=== PATIENT | female | born 1990 | race Caucasian/White ===

== ENCOUNTER 2020-01-10 11:43 | Inpatient (IN) ==
[2020-01-10] MEDS ORDERED: SIMETHICONE CHEW 80 MG TABLET PO PRN (16:13)
[2020-01-10] MEDS ORDERED: ACETAMINOPHEN/CODEINE 300-30 MG TABLET PO PRN (19:36)
[2020-01-10] MEDS: LABETALOL 100 MG TABLET PO SCH (20:59)
[2020-01-11] MEDS: LABETALOL 100 MG TABLET PO SCH ×2 (08:49→20:55)
[2020-01-11] MEDS ORDERED: BUTORPHANOL 2 MG/ML VIAL IV PRN (08:53)
[2020-01-11] MEDS ORDERED: ONDANSETRON 4 MG/2 ML VIAL IV PRN (08:53)
[2020-01-11] MEDS ORDERED: LACTATED RINGERS 500 ML IV PRN (08:53)
[2020-01-11] MEDS ORDERED: FAMOTIDINE 20 MG/2 ML VIAL IV SCH (09:00)
[2020-01-11] MEDS ORDERED: FAMOTIDINE 20 MG TABLET PO SCH (09:00)
[2020-01-11] MEDS ORDERED: OXYTOCIN/LR 20 UNIT/1,000 ML BAG IV SCH (09:00)
[2020-01-11 09:17] LABS: Basophils % 0.2 % (0.0-0.8); Eosinophils # 0.1 10*3/uL (0.0-0.87); Eosinophils % 1.3 % (0.00-10.9); Hematocrit 29.5 VOL% (35.7-47.0); Hemoglobin 9.5 GM/DL (12.0-16.0); Immature Granulocytes % 0.6 %; Immature Granulocytes Absolute 0.05 #; Lymphocytes # 1.2 10*3/uL (1.4-4.0); Lymphocytes % 14.1 % (21.3-54.2); Mean Corpuscular HGB Conc 32.2 GM/DL (32-36); Mean Corpuscular Volume 86.5 FL (87-102); Mean Platelet Volume 11.6 FL (9.6-12.0); Monocytes % 5.6 % (1.7-12.7); Neutrophils % 78.2 % (38.7-73.9); Platelet Count 166 T/CUMM (130-400); Red Blood Count 3.41 MC/CUMM (3.8-5.5); Red Cell Distribution Width 13.1 % (9.3-17.3); White Blood Count 8.6 T/CUMM (4-12)
[2020-01-11 09:39] LABS: INR 0.9; PT Patient Result 9.8 SECS (9.8-11.9); Partial Thromboplastin Time 26.2 SECS (23.9-33.8)
[2020-01-11 09:58] LABS: Albumin 2.7 G/DL (3.4-5.0); Bilirubin,Total 0.6 MG/DL (0.2-1.0); Calcium 8.7 MG/DL (8.5-10.1); Osmolality,Calculated 272.7 MOS/KG (273-304); Total Protein 6.6 G/DL (6.4-8.3); Uric Acid 4.7 MG/DL (2.6-6.0)
[2020-01-11 10:00] LABS: Hepatitis B Surface Ag Quant < 0.10 Index; Hepatitis B Surface Ag Result Negative (Negative)
[2020-01-11] MEDS ORDERED: ONDANSETRON 4 MG/2 ML VIAL IV ONE (10:19)
[2020-01-11] MEDS ORDERED: CITRIC ACID/SODIUM CITRATE 30 ML UDCUP PO ONE (10:19)
[2020-01-11] MEDS ORDERED: ePHEDrine 50 MG/ML VIAL IV PRN (10:19)
[2020-01-11] MEDS ORDERED: NALOXONE 0.4 MG/ML VIAL IV PRN (10:19)
[2020-01-11] MEDS ORDERED: hydrOXYzine HCL 25 MG/1 ML VIAL IM PRN (10:19)
[2020-01-11] MEDS ORDERED: diphenhydrAMINE 50 MG/1 ML VIAL IV PRN ×2 (10:19)
[2020-01-11 10:27] LABS: HIV Antigen/Antibody Result Nonreactive (Nonreactive)
[2020-01-11] MEDS ORDERED: fentaNYL 2 MCG/ROPIV 0.2% EPID 100 ML EPIDURAL SCH (10:30)
[2020-01-11] MEDS: LACTATED RINGERS 1,000 ML IV SCH ×2 (10:35→10:37)
[2020-01-11 12:52] LABS: Apearance,Urine CLEAR (Clear); Bilirubin,Urine Negative (Negative); Blood, Urine Negative (Negative); Glucose,Urine (UA) Negative (Negative); Ketones,Urine Negative (Negative); Mucus,Urine Occasional /LPF (Occasional); Nitrite,Urine Negative (Negative); Protein,Urine Negative; RBC,Urine 3 /HPF (0-4); Squamous Epithelial Cell,Urine Occasional /HPF (0-10); Urine Color Yellow (Yellow); Urine Specific Gravity 1.018 (1.001-1.035); WBC,Urine 1 /HPF (0-6)
[2020-01-11 17:07] LABS: Cord Arterial Blood HCO3 19.5 MMOL/L
[2020-01-11 17:14] LABS: Cord Venous Blood HCO3 21.4 MMOL/L; Cord Venous Blood PCO2 40.5 MMHG; Cord Venous Blood PO2 28.9
[2020-01-11] MEDS ORDERED: LANOLIN 50% CREAM 0.3 OZ TUBE TOP PRN (21:52)
[2020-01-11] MEDS ORDERED: RHO(D) IMMUNE GLOBULIN 300 MCG SYRINGE IM ONE (21:52)
[2020-01-11] MEDS ORDERED: MEASLES/MUMPS/RUBELLA VACCINE 0.5 ML VIAL SUBCUT ONE (21:52)
[2020-01-11] MEDS ORDERED: ACETAMINOPHEN 325 MG TABLET PO PRN (21:52)
[2020-01-11] MEDS ORDERED: BISACODYL 10 MG SUPP RECTAL PRN (21:52)
[2020-01-11] MEDS ORDERED: DIPH/TET/ACEL PERT BOOSTER VACCINE 0.5 ML VIAL IM ONE (21:52)
[2020-01-11] MEDS ORDERED: WITCH HAZEL PADS 100/JAR TOP PRN (21:52)
[2020-01-11] MEDS ORDERED: OXYTOCIN/LR 20 UNIT/1,000 ML BAG IV ONE (21:52)
[2020-01-11] MEDS ORDERED: BENZOCAINE 20%/MENTHOL 0.5% SPRAY 56 GM CAN TOP PRN (21:52)
[2020-01-11] MEDS ORDERED: HYDROCORTISONE 2.5% RECTAL CREAM 30 GM TUBE TOP PRN (21:52)
[2020-01-11] MEDS ORDERED: oxyCODONE/ACETAMINOPHEN 5-325 MG TABLET PO PRN (21:52)
[2020-01-11] MEDS: oxyCODONE/ACETAMINOPHEN 5-325 MG TABLET PO PRN (22:04)
[2020-01-11] MEDS: DOCUSATE SODIUM 100 MG CAPSULE PO SCH (22:04)
[2020-01-11] MEDS ORDERED: ALBUTEROL MDI PO PRN (22:37)
[2020-01-12 06:14] LABS: Basophils % 0.3 % (0.0-0.8); Eosinophils # 0.1 10*3/uL (0.0-0.87); Eosinophils % 1.2 % (0.00-10.9); Hematocrit 30.7 VOL% (35.7-47.0); Hemoglobin 9.7 GM/DL (12.0-16.0); Immature Granulocytes % 0.5 %; Immature Granulocytes Absolute 0.05 #; Lymphocytes # 1.2 10*3/uL (1.4-4.0); Mean Corpuscular HGB Conc 31.6 GM/DL (32-36); Mean Corpuscular Volume 87.5 FL (87-102); Mean Platelet Volume 11.8 FL (9.6-12.0); Monocytes % 4.1 % (1.7-12.7); Neutrophils % 81.9 % (38.7-73.9); Platelet Count 169 T/CUMM (130-400); Red Blood Count 3.51 MC/CUMM (3.8-5.5); Red Cell Distribution Width 12.9 % (9.3-17.3); White Blood Count 10.2 T/CUMM (4-12)
[2020-01-12] MEDS: IBUPROFEN 800 MG TABLET PO PRN ×2 (06:52→21:58)
[2020-01-12] MEDS: DOCUSATE SODIUM 100 MG CAPSULE PO SCH ×2 (09:24→21:43)
[2020-01-12] MEDS: oxyCODONE/ACETAMINOPHEN 5-325 MG TABLET PO PRN (18:26)
[2020-01-13] MEDS: DOCUSATE SODIUM 100 MG CAPSULE PO SCH (09:44)
[2020-01-13 11:48] VITALS: BP 147/96
== END 2020-01-13 14:00 | disposition home or self-care (01) | DRG 807 ==
LOC: N.LDOUT 11:43 → N.LD 11:46 → N.OB 01-11 21:23
PROVIDERS: ADMIT Obstetrics & Gynecology; ATTEND Obstetrics & Gynecology